=== PATIENT | female | born 1950 | race Caucasian/White ===

== ENCOUNTER 2024-07-13 17:18 | Emergency (ER) | payer OTHER ==
[~2024-07-13] VITALS: Ht 160 cm; Wt 73.0 kg
[2024-07-13 17:24] VITALS: TEMP 98.5; O2SAT 92
[2024-07-13 18:07] LABS: BASOPHILS % 0.3 % (0.0-2.0); HEMATOCRIT. 38.8 % (36.0-48.0); HEMOGLOBIN. 12.7 g/dL (12.0-16.0); LYMPHOCYTES % 11.3 % (20.0-50.0); MEAN CORPUSCULAR HEMOGLOBIN 27.7 pg (28.0-32.0); MEAN CORPUSCULAR HGB CONC 32.7 g/dL (31.0-37.0); MEAN CORPUSCULAR VOLUME 84.6 fL (81.0-99.0); MEAN PLATELET VOLUME 8.4 fl (7.4-10.4); MONOCYTES % 7.9 % (2.0-8.0); NEUTROPHILS % 80.5 % (40.0-76.0); PLATELET 162 x1000/uL (130-400); RED BLOOD CELL COUNT 4.58 mill/uL (4.2-5.4); RED CELL DISTRIBUTION WIDTH 17.2 % (11.6-14.6); WHITE BLOOD COUNT 7.3 x1000/uL (4.5-11.0)
[2024-07-13] MEDS: OXYMETAZOLINE HCL NASAL SPRAY 15ML BOTHNSTRLS SCH (19:15)
[2024-07-13 19:17] LABS: CARBON DIOXIDE 21 mEq/L (21-32); CHLORIDE 106 mEq/L (98-107); POTASSIUM 3.6 mEq/L (3.5-5.1); SODIUM 139 mEq/L (136-145)
[2024-07-13 19:18] LABS: CALCIUM 9.1 mg/dL (8.7-10.4)
[2024-07-13 19:22] LABS: TROPONIN I HIGH SENSITIVITY 6 ng/L (3.0-34)
[2024-07-13 19:23] LABS: GLUCOSE 147 mg/dL (70-105); UREA NITROGEN BLOOD 20 mg/dL (9-23)
[2024-07-13 19:24] LABS: ALANINE AMINOTRANSFERASE 10 IU/L (10-49); ASPARTATE AMINOTRANSFERASE 26 IU/L (<34)
[2024-07-13 19:25] LABS: BILIRUBIN DIRECT 0.2 mg/dL (<=3.0); BILIRUBIN TOTAL 0.6 mg/dL (0.1-1.0); PROTEIN TOTAL 6.3 g/dL (6.0-8.3)
[2024-07-13] MEDS: TRANEXAMIC ACID 1,000MG/10ML IV ONE (19:45)
[2024-07-13 19:52] VITALS: RESP 16
[2024-07-13] MEDS: PANTOPRAZOLE SODIUM 40 MG/VIAL IV STA (21:13)
[2024-07-13] MEDS ORDERED: KETAMINE HCL 100 MG in SODIUM CHLORIDE 0.9% 100 ML IV PRN (21:15)
[2024-07-13] MEDS: SODIUM CHLORIDE 0.9% IV PRN (21:38)
[2024-07-13] MEDS: PANTOPRAZOLE 80 MG in SODIUM CHLORIDE 0.9% 100 ML IV STA (21:38)
[2024-07-13] MEDS: OCTREOTIDE ACETATE 50 MCG/ML 1ML IV STA (21:38)
[2024-07-13] MEDS: KETAMINE HCL IV PRN (21:38)
[2024-07-13] MEDS ORDERED: IPRATROPIUM/ALBUTEROL 0.5-3(2.5)MG/3ML NEB NEB PRN (22:15)
[2024-07-13] MEDS ORDERED: ACETAMINOPHEN 325MG TABLET PO PRN (22:15)
[2024-07-13] MEDS: LACTATED RINGERS 1,000 ML IV SCH (22:15)
[2024-07-13 22:47] LABS: HEMATOCRIT 31.2 % (36.0-48.0); MEAN CORPUSCULAR HEMOGLOBIN 27.5 pg (28.0-32.0); MEAN CORPUSCULAR VOLUME 85.9 fL (81.0-99.0); PLATELET 208 x1000/uL (130-400); RED BLOOD CELL COUNT 3.63 mill/uL (4.2-5.4); RED CELL DISTRIBUTION WIDTH 17.3 % (11.6-14.6); WHITE BLOOD COUNT 16.9 x1000/uL (4.5-11.0)
[2024-07-13 23:06] VITALS: RESP 22
[2024-07-13] MEDS: SODIUM CHLORIDE 0.9% 1,000 ML IV ONE (23:08)
[2024-07-13] MEDS ORDERED: NOREPINEPHRINE 8 MG in DEXT 5% WATER 242 ML IV STA (23:14)
[2024-07-13] MEDS: NOREPINEPHRINE 8MG/250ML PMX 250 ML IV NR (23:35)
[2024-07-14] MEDS: IOHEXOL-350 100 ML BOTTLE ONE (00:03)
[2024-07-14 01:59] LABS: BG BASE EXCESS -12.2 mmol/L (-2.0-3.0); BG CARBOXYHEMOGLOBIN 0.3 % (0.5-1.5); BG DEOXYHEMOGLOBIN 15.6 % (0.0-5.0); BG FRACTION INSPIRED OXYGEN 100; BG HCO3 ACT 17.1 mmol/L (21.0-28.0); BG METHEMOGLOBIN 0.2 % (0.5-1.5); BG OXYGEN SATURATION 84.3 % (94.0-98.0); BG OXYHEMOGLOBIN 83.9 % (94.0-98.0); BG PCO2 54.6 mmHg (32.0-45.0); BG PH 7.113 (7.350-7.450); BG SAMPLE SITE LEFT BRACHIAL; BG TOTAL HEMOGLOBIN 10.8 g/dL (12.0-16.0); BG TOTAL RESPIRATORY RATE 39 b/min; BG VENT MODE VENT - AC
[2024-07-14] MEDS ORDERED: VASOPRESSIN 20 UNIT in SODIUM CHLORIDE 0.9% 99 ML IV PRN (02:00)
[2024-07-14] MEDS ORDERED: SODIUM CHLORIDE 0.9% 500 ML IV NR ×2 (02:00)
[2024-07-14] MEDS ORDERED: PHENYLEPHRINE 50MG/250ML PMX 250 ML IV PRN (02:00)
[2024-07-14] MEDS: VASOPRESSIN 20 UNIT in SODIUM CHLORIDE 0.9% 99 ML IV PRN (02:35)
[2024-07-14] MEDS: PHENYLEPHRINE 50 MG in DEXTROSE 5% WATER 250 ML IV PRN (02:35)
[2024-07-14 02:37] VITALS: RESP 29
[2024-07-14] MEDS ORDERED: SODIUM BICARBONATE 100 MEQ in SODIUM CHLORIDE 0.9% 1,000 ML IV SCH (02:45)
[2024-07-14 03:25] VITALS: BP 124/33
[2024-07-14] MEDS ORDERED: SODIUM BICARBONATE 100MEQ in DEXTROSE 5% WATER 1000ML IV SCH (03:30)
[2024-07-14 03:40] VITALS: PULSE 79; RESP 16; O2SAT 98
== END 2024-07-14 04:42 ==
LOC: EDBEDREQ 17:32 → ER 18:21 → EDBEDREQSVC 20:10 → EDBEDREQ 20:10 → ER 07-14 04:42
DX: I71.43 Infrarenal abdominal aortic aneurysm, without rupture (principal); I10 Essential (primary) hypertension; J44.9 Chronic obstructive pulmonary disease, unspecified; E03.9 Hypothyroidism, unspecified
CPT/HCPCS: 99291; 74174; 92950; 31500; 96365; 71275; 71045; 96375; 96366; 80076; 80048; 83880; 85025; 86850; 86900; 86901; 86920; 87040; 84484; 99292; 93005; 96368; 82040; 85027; 96367; 36415; Q9967; J2354; J3490; J2470; J7050; J7030; 94002; J7060; J7070